=== PATIENT | male | born 1970 | race Caucasian/White ===

== ENCOUNTER → 2018-12-27 | Outpatient (REF) | LOC: M LAB LCGH 14:59 | PROVIDERS: ATTEND Surgery | DX: K80.10 Calculus of gallbladder with chronic cholecystitis without obstruction (principal); K65.4 Sclerosing mesenteritis ==

== ENCOUNTER → 2019-03-04 | Outpatient (CLI) | payer BC ==
--- NOTE | 2019-03-06 18:33 | REP ---
PET/CT: History: Abnormal lung field findings. There is a remote prior history of testicular cancer post right orchiectomy and chemotherapy. History includes possible pancreatic mass. CT study from [facility] is report as showing a 3.5 cm in large right paratracheal lymph node. Comparisons: No comparisons available. TECHNIQUE: 55 minutes following the intravenous injection of a 8.26 mCi dose of F-18 FDG, three-dimensional PET scintigraphy is acquired from the skull base to the proximal thighs. Triplanar noncontrast CT scanning is acquired through the same anatomic range for attenuation correction, and image registration with scan parameters optimized to minimize radiation exposure to the patient. PET scintigraphy and CT datasets were fused and displayed on a workstation with multiplanar and projection display capability. PET/CT Findings: Head and neck soft tissues are unremarkable. The large low density right paratracheal nodule versus cyst is not hypermetabolic. Maximum standard uptake value within this is 1.51. No abnormal hilar or mediastinal hypermetabolic uptake is seen. There is no abnormal pulmonary parenchymal hypermetabolic uptake. There is a zone of minimal linear atelectasis in the left base laterally. No abnormal hypermetabolic uptake is seen in the liver. There is hypermetabolic uptake along the superior margin of the pancreas in this patient with history of recent pancreatitis. These may be an inflamed celiac axis lymph nodes. Maximum standard uptake value is 5.15 in this tissue. The body of the pancreas is enlarged with a low-density area suggestive of intrapancreatic fluid collection. No abnormal hypermetabolic uptake is seen within this portion of the pancreas. Along the inferior aspect of the body of the pancreas just anterior to the knee left renal vein, there is a small soft tissue density adjacent to or contiguous with the pancreas which shows hypermetabolic uptake, maximum standard uptake value 4.04. No other abnormal abdominal or pelvic hypermetabolic uptake is seen. Gallbladder surgically absent. Impression: The 3.5 cm low density right paratracheal mediastinal lesion does not show visible or hypermetabolic FDP accumulation. There is hypermetabolic uptake superior and inferior along the pancreas. This is certainly consistent with the patient's recent diagnosis of acute pancreatitis. This should be followed. It is difficult to completely exclude pancreatic neoplasm. There is apparently a developing intrapancreatic fluid collection. This fluid collection and its borders are not hypermetabolic at this time. Electronically Signed by Franko Silveira MD 03/06/2019 06:24 P
== END ==
LOC: M PLARAD 15:19
PROVIDERS: ATTEND Internal Medicine Pulmonary Disease
DX: R59.0 Localized enlarged lymph nodes (principal); Z85.47 Personal history of malignant neoplasm of testis; K86.89 Other specified diseases of pancreas
CPT/HCPCS: 78815; A9552